=== PATIENT | male | born 1980 | race Caucasian/White ===

== ENCOUNTER 2025-03-11 18:02 | Emergency (ER) | payer MEDICAID ==
[~2025-03-11] VITALS: Ht 188 cm; Wt 118.0 kg
[2025-03-11 19:11] VITALS: BP 145/96; PULSE 94; RESP 18; O2SAT 98
[2025-03-11] MEDS: LIDOcaine 1% 30ml preserv. free vial IJ STA (19:58)
[2025-03-11] MEDS: amox tr/potassium clavulanate 875/125mg TAB PO ONE (21:13)
[2025-03-11] MEDS: TETanus/Pertussis (Acell)/Diphther VAC/PF (Tdap-Adult) 0.5ml syringe IMVAC ONE (21:22)
--- NOTE | 2025-03-11 21:57 | Physician Documentation ---
History of Present Illness ~ Chief Complaint: Bite-animal Stated Complaint: FINGER LAC Time Seen by MD: 19:12 HPI Patient is seen today with complaints of having broken up a fight of his dogs that are vaccinated in his house and he got bit on the ulnar aspect of his right long finger at the level of the PIP joint with perceived decreased light touch sensation distally in the ulnar aspect of the right long finger. Patient has no other concern or complaint at this time. Tetanus within 5 years?: No Medication Reconciliation Allergies: Uncoded Allergies: SULFA (Allergy, Unknown, "heat hives", 03/11/25) Review of Systems Constitutional: Denies: chills, fever, weakness Eyes: Denies: pain, blurred vision ENT: Denies: ear pain, nose pain, throat pain, mouth pain Respiratory: Denies: cough, shortness of breath Cardiovascular: Denies: chest pain, palpitations Gastrointestinal: Denies: abdominal pain, nausea, vomiting Genitourinary: Denies: burning, dysuria Male Genitalia: Denies: penile discharge, testicular pain Neurological: Denies: headache, dizziness Musculoskeletal: Denies: pain, swelling Integumentary: Denies: rash, lesions Allergic/Immunologic: Denies: hives, itching Hematologic/Lymphatic: Denies: no symptoms reported Psychiatric: Denies: depression, anxiety Physical Exam Vital Signs: Temperature: 98.7, Source: Oral, Heart Rate: 94, Respiratory Rate: 18, BP: 145/96, Pulse Oximetry: 98, Weight: 118.000 Physical Exam General: Awake and Alert, no acute distress. HEENT: Conjunctiva pink, Sclera clear, Mucus Membranes moist. Neck: Supple without masses and tenderness. Resp: Unlabored. Lungs clear to auscultation bilaterally. Heart: Regular Rate and rhythm, normal S1 and S2 without murmur, rub or gallop. Musculoskeletal: Patient on exam does have 2 cm laceration in the palmar aspect aging along the ulnar aspect of the right long finger at the level of the PIP joint with decreased light touch sensation distally. Bleeding is well controlled. Motor function is intact, flexion is intact strength is intact. Extremities: No cyanosis,clubbing or edema. Skin: Warm and Dry. Procedures Laceration/Wound Repair Laceration/Wound Repair : Procedure Note Procedure note: 4 cc of 1% lidocaine without epinephrine was used to achieve local anesthesia of the laceration measuring 2 cm on the palmar aspect of the right long finger encroaching on the ulnar aspect of the digit. Patient tolerated well. Wound was irrigated with copious amounts of normal saline and iodine. Three simple sutures using 5-0 Prolene were used to achieve loose closure. Progress Results/Orders Results/Orders Completed Orders - MARISELA LOZANO Lidocaine 1% 30ml Vial (Xylocaine 1% Via (03/11/25 19:12) Tetanus/Pertuss/Diph Acell/Pf (Boostrix (03/11/25 20:40) Amox Tr/Potassium Clavulanate (Augmentin (03/11/25 20:40) Medications Received in ER Medications (Trade) Dose Ordered Sig/Ford Route PRN Reason Start Time Stop Time Status Last Admin Dose Admin (Boostrix vaccine syringe) 0.5 ml ONCE ONCE IMVAC 03/11/25 20:40 03/11/25 20:41 DC 03/11/25 21:22 0.5 ML (Augmentin 875-125mg tablet) 1 tab ONCE ONCE PO 03/11/25 20:40 03/11/25 20:41 DC 03/11/25 21:13 1 TAB Vital Signs 03/11/25 19:11 Temp 98.7 Pulse 94 Resp 18 B/P (MAP) 145/96 Pulse Ox 98 Medical Decision Making Findings Patient is seen today with complaints of having broken up a fight of his dogs that are vaccinated in his house and he got bit on the ulnar aspect of his right long finger at the level of the PIP joint with perceived decreased light touch sensation distally in the ulnar aspect of the right long finger. Patient has no other concern or complaint at this time. Patient was sutured loosely by myself today. Patient was given dose of Augmentin 875/125 mg by mouth in the ED today. Prescription sent to patient's pharmacy for Augmentin twice a day for 10 days. Patient will return to ED immediately if he experiences any increased swelling or erythema or purulent drainage or discharge or increased pain or sign of infection. Patient voiced understanding. Sutures will need removed in 7-10 days. Departure Disposition: HOME / SELF CARE / HOMELESS Impression: Primary Impression: Dog bite Qualified Codes: W54.0XXA - Bitten by dog, initial encounter Additional Impression: Laceration of finger Qualified Codes: S61.212A - Laceration without foreign body of right middle finger without damage to nail, initial encounter Condition: Improved Discharge Instructions: Animal Bite, Adult Additional Instructions: Patient was sutured loosely by myself today. Patient was given dose of Augmentin 875/125 mg by mouth in the ED today. Prescription sent to patient's pharmacy for Augmentin twice a day for 10 days. Patient will return to ED immediately if he experiences any increased swelling or erythema or purulent drainage or discharge or increased pain or sign of infection. Patient voiced understanding. Sutures will need removed in 7-10 days. Referrals: NO PRIMARY CARE PROVIDER (PCP) Prescriptions Amox Tr/Potassium Clavulanate (Augmentin 875-125 Tablet) 1 Each Tablet 1 TAB PO Q12H for 10 Days, #20 TAB Prov: MARISELA LOZANO 03/11/25 Signature Scribe Signature: No scribe Attestation: No scribe MARISELA LOZANO PAC Mar 11, 2025 21:57
[2025-03-11] MEDS ORDERED: AMOX-117 PO (22:14)
[2025-03-11 22:16] VITALS: TEMP 98.7
== END 2025-03-11 22:18 | disposition home or self-care (01) ==
LOC: ER 18:03
DX: S61.212A Laceration without foreign body of right middle finger without damage to nail, initial encounter (principal); W54.0XXA Bitten by dog, initial encounter; Y93.89 Activity, other specified; Y92.89 Other specified places as the place of occurrence of the external cause; Y99.8 Other external cause status
CPT/HCPCS: 12001; 90471; 90715; 99283; J7030; A6449